=== PATIENT | female | born 1980 | race American Indian/Alaskan Native ===

== ENCOUNTER 2019-03-03 17:23 | Emergency (ER) | payer SELFPAY ==
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
[2019-03-03] MEDS ORDERED: TYLENOL PO ONE (20:14)
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
[2019-03-03 21:21] VITALS: BP 122/55
== END 2019-03-03 21:20 | disposition home or self-care (01) ==
LOC: ED 17:23
DX: S86.912A Strain of unspecified muscle(s) and tendon(s) at lower leg level, left leg, initial encounter (principal); S83.92XA Sprain of unspecified site of left knee, initial encounter; Z79.899 Other long term (current) drug therapy; Z88.8 Allergy status to other drugs, medicaments and biological substances; V49.49XA Driver injured in collision with other motor vehicles in traffic accident, initial encounter; Y93.89 Activity, other specified; Y92.410 Unspecified street and highway as the place of occurrence of the external cause; Y99.8 Other external cause status

== ENCOUNTER 2019-05-29 15:57 | Emergency (ER) | payer SELFPAY ==
--- NOTE | 2019-05-29 16:26 | Event Note ---
ED Screening Note ED Screening Note: left upper dental pain that began a few days ago she has associated facial swelling states she tried to go to the dentist but they wouldnt take her per pt no fever states she needs dental surgery no PMHx
[2019-05-29 16:27] VITALS: BP 132/85
--- NOTE | 2019-05-29 16:29 | Emergency Department Report ---
ED ENT HPI - General Chief complaint: Dental/Oral Stated complaint: LFT SIDE TOOTH ABCESS/PAIN Time Seen by Provider: 05/29/19 16:23 Source: patient Mode of arrival: Ambulatory Limitations: No Limitations - History of Present Illness Initial comments: pt is a 39 yo female who presents to the ED with c/o left upper dental pain that began a few days ago. she has associated left sided facial swelling. states she tried to go to the dentist but they wouldnt take her per pt as a walk in. she denies any fever. she states she needs dental surgery. no PMHx. allergy: toradol. - Related Data Previous Rx's Medication Instructions Recorded Last Taken Type tiZANidine [Zanaflex 4mg TAB] 4 mg PO Q8H PRN #21 tablet 03/03/19 Unknown Rx traMADoL [Ultram] 50 mg PO Q6HR PRN #15 tablet 03/03/19 Unknown Rx Clindamycin [Clindamycin CAP] 450 mg PO TID 7 Days #63 capsule 05/29/19 Unknown Rx Ibuprofen [Motrin 600 MG tab] 600 mg PO Q8H PRN #14 tablet 05/29/19 Unknown Rx Allergies Allergy/AdvReac Type Severity Reaction Status Date / Time ketorolac [From Toradol] Allergy Anaphylaxis Verified 05/29/19 15:58 ED Dental HPI - General Chief complaint: Dental/Oral Stated complaint: LFT SIDE TOOTH ABCESS/PAIN Time Seen by Provider: 05/29/19 16:23 Source: patient Mode of arrival: Ambulatory Limitations: No Limitations - Related Data Previous Rx's Medication Instructions Recorded Last Taken Type tiZANidine [Zanaflex 4mg TAB] 4 mg PO Q8H PRN #21 tablet 03/03/19 Unknown Rx traMADoL [Ultram] 50 mg PO Q6HR PRN #15 tablet 03/03/19 Unknown Rx Clindamycin [Clindamycin CAP] 450 mg PO TID 7 Days #63 capsule 05/29/19 Unknown Rx Ibuprofen [Motrin 600 MG tab] 600 mg PO Q8H PRN #14 tablet 05/29/19 Unknown Rx Allergies Allergy/AdvReac Type Severity Reaction Status Date / Time ketorolac [From Toradol] Allergy Anaphylaxis Verified 05/29/19 15:58 ED Review of Systems ROS: Stated complaint: LFT SIDE TOOTH ABCESS/PAIN Other details as noted in HPI Comment: All other systems reviewed and negative ED Past Medical Hx - Past Medical History Previous Medical History?: No - Surgical History Additional Surgical History: x 3 /TUBAL LIG - Social History Smoking Status: Never Smoker Substance Use Type: None - Medications Home Medications: Home Medications Medication Instructions Recorded Confirmed Last Taken Type tiZANidine [Zanaflex 4mg TAB] 4 mg PO Q8H PRN #21 tablet 03/03/19 Unknown Rx traMADoL [Ultram] 50 mg PO Q6HR PRN #15 tablet 03/03/19 Unknown Rx Clindamycin [Clindamycin CAP] 450 mg PO TID 7 Days #63 capsule 05/29/19 Unknown Rx Ibuprofen [Motrin 600 MG tab] 600 mg PO Q8H PRN #14 tablet 05/29/19 Unknown Rx ED Physical Exam - General Limitations: No Limitations General appearance: alert, in no apparent distress - Head Head exam: Present: atraumatic, normocephalic - Eye Eye exam: Present: normal appearance - ENT ENT exam: Present: normal orophraynx, mucous membranes moist, other (very poor dentition, several missing teeth, area of edema present to the left upper gumline, edema present to the left maxilla region, uvula is midline, no uvular edema) - Neurological Exam Neurological exam: Present: alert, oriented X3 - Psychiatric Psychiatric exam: Present: normal affect, normal mood - Skin Skin exam: Present: warm, dry, intact ED Course Vital Signs 05/29/19 16:24 Temperature 99.2 F Pulse Rate 97 H Respiratory 18 Rate Blood Pressure 132/85 O2 Sat by Pulse 98 Oximetry ED Medical Decision Making - Medical Decision Making pt is a 39 yo female who presents to the ED with c/o left upper dental pain that began a few days ago. she has associated left sided facial swelling. states she tried to go to the dentist but they wouldnt take her per pt as a walk in. she denies any fever. she states she needs dental surgery. no PMHx. allergy: toradol.VSS. on exam: very poor dentition, several missing teeth, area of edema present to the left upper gumline, edema present to the left maxilla region, uvula is midline, no uvular edema. Examination consistent with dental abscess and facial cellulitis. Patient given prescription for clindamycin and ibuprofen. advised pt to please take medication as prescribed. follow up with a dentist in the next 3-5 days. it is very important you follow up with a dentist for a permanent solution. return to the emergency room for any new or worsening symptoms. Critical care attestation.: If time is entered above; I have spent that time in minutes in the direct care of this critically ill patient, excluding procedure time. ED Disposition Clinical Impression: Dental abscess, Facial cellulitis Disposition: TO HOME OR SELFCARE Is pt being admited?: No Does the pt Need Aspirin: No Condition: Stable Instructions: Dental Abscess (ED) Additional Instructions: please take medication as prescribed. follow up with a dentist in the next 3-5 days. it is very important you follow up with a dentist for a permanent solution. return to the emergency room for any new or worsening symptoms. Prescriptions: Clindamycin [Clindamycin CAP] 450 mg PO TID 7 Days #63 capsule Ibuprofen [Motrin 600 MG tab] 600 mg PO Q8H PRN #14 tablet PRN Reason: Pain Referrals: [facility] [Outside] - 2-3 Days Time of Disposition: 16:28 Print Language: [place]
== END 2019-05-29 17:38 | disposition home or self-care (01) ==
LOC: ED 15:57
DX: K04.7 Periapical abscess without sinus (principal); L03.211 Cellulitis of face; Z79.899 Other long term (current) drug therapy; Z88.8 Allergy status to other drugs, medicaments and biological substances